=== PATIENT | female | born 1975 | race Caucasian/White ===

== ENCOUNTER 2024-04-18 15:30 | Emergency (ER) | payer BC, MEDICAID ==
[~2024-04-18] VITALS: Ht 160 cm; Wt 53.2 kg
[2024-04-18 16:24] LABS: BASOPHILS # (AUTO) 0.1 X10'3 (0-0.2); BASOPHILS % (AUTO) 0.7 % (0-1); EOSINOPHILS # (AUTO) 0.1 X10'3 (0-0.9); EOSINOPHILS % (AUTO) 0.6 % (0-6); HEMATOCRIT 36.6 % (35.0-45.0); HEMOGLOBIN 12.3 g/dl (12.0-16.0); LYMPHOCYTES # (AUTO) 2.5 X10'3 (1.1-4.8); LYMPHOCYTES % (AUTO) 20.4 % (21-51); MEAN CORPUSCULAR HEMOGLOBIN 30.4 PG (27.0-31.0); MEAN CORPUSCULAR HGB CONC 33.6 g/dL (33.0-36.5); MEAN CORPUSCULAR VOLUME 90.6 FL (78-98); MEAN PLATELET VOLUME 6.9 FL (7.4-10.4); MONOCYTES # (AUTO) 0.8 X10'3 (0-0.9); MONOCYTES % (AUTO) 6.4 % (2-12); NEUTROPHILS # (AUTO) 8.7 X10'3 (1.8-7.7); NEUTROPHILS % (AUTO) 71.9 % (42-75); PLATELET COUNT 431 X10'3 (140-440); RED BLOOD COUNT 4.04 X10'6 (4.20-5.60); RED CELL DISTRIBUTION WIDTH 13.7 % (11.5-14.5); WHITE BLOOD COUNT 12.1 X10'3 (4.5-11.0)
[2024-04-18 16:41] LABS: ALANINE AMINOTRANSFERASE 20 U/L (12-78); ALBUMIN 3.3 G/DL (3.4-5.0); ALBUMIN/GLOBULIN RATIO 0.8 (1.1-1.5); ALKALINE PHOSPHATASE 108 IU/L (46-116); ANION GAP 6 (8-16); ASPARTATE AMINO TRANSFERASE 15 U/L (10-37); BILIRUBIN,TOTAL 0.4 MG/DL (0.1-1.0); BLOOD UREA NITROGEN 15 MG/DL (7-18); CALCIUM 9.3 MG/DL (8.5-10.1); CHLORIDE 100 MMOL/L (99-107); CREATININE 0.94 MG/DL (0.40-0.90); GLUCOSE 89 MG/DL (70-104); LIPASE 37 U/L (16-77); POTASSIUM 3.9 MMOL/L (3.5-5.1); SODIUM 136 MMOL/L (135-145); TOTAL CARBON DIOXIDE 29.9 MMOL/L (24-32); TOTAL PROTEIN 7.3 G/DL (6.4-8.2); eCRCL 61 ML/MIN; eGFR 64 ML/MIN
[2024-04-18] MEDS: normal saline 1000ML IV soln IV ONE (16:49)
[2024-04-18] MEDS: ondansetron/PF 4mg/2ml inj IV ONE ×2 (16:51→20:41)
[2024-04-18] MEDS: HYDROmorphone 1 mg/ml syringe IV ONE ×2 (16:51→20:41)
[2024-04-18 17:30] LABS: HCG SERUM QL NEGATIVE
[2024-04-18 17:41] LABS: BILIRUBIN,URINE NEGATIVE (Neg); CLARITY,URINE CLEAR (Clear); COLOR,URINE YELLOW (Yellow); GLUCOSE, URINE NEGATIVE (Neg); KETONES,URINE NEGATIVE (Neg); LEUKOCYTE ESTERASE ,URINE NEGATIVE (Neg); NITRITES, URINE NEGATIVE (Neg); OCCULT BLOOD,URINE NEGATIVE (Neg); PH,URINE 6.5 (4.8-8.0); PROTEIN,URINE NEGATIVE (Neg); UROBILINOGEN,URINE 0.2 E.U/dL (0.2-1.0)
[2024-04-18 17:45] LABS: UA COLLECTION TYPE NON-SPECIFIED
[2024-04-18] MEDS ORDERED: HYDROmorphone 1 mg/ml syringe IV ONE (20:35)
[2024-04-18] MEDS ORDERED: ONDA4TAB12 PO (20:47)
[2024-04-18] MEDS ORDERED: TETR12.52 (20:48)
[2024-04-18] MEDS ORDERED: ROPI2TAB29 PO (20:50)
[2024-04-18] MEDS ORDERED: BUDE10.22 INH (20:51)
[2024-04-18] MEDS ORDERED: CLON1TAB95 PO (20:53)
[2024-04-18] MEDS ORDERED: PRAZ2CAP2 PO (20:54)
[2024-04-18] MEDS ORDERED: SUMA25TA35 PO (20:56)
[2024-04-18] MEDS ORDERED: DICY10CA88 PO (20:58)
[2024-04-18] MEDS ORDERED: DIPH-186 PO (20:58)
[2024-04-18] MEDS ORDERED: NALO12.52 PO (21:00)
[2024-04-18] MEDS ORDERED: LEVA15HF6 INH (21:01)
[2024-04-18 21:40] VITALS: BP 135/80; PULSE 76; RESP 16; O2SAT 97
[2024-04-18] MEDS ORDERED: CLIN-97 PO (23:10)
[2024-04-18] MEDS ORDERED: HYDR-3965 PO (23:11)
[2024-04-18 23:22] VITALS: TEMP 98.5
== END 2024-04-18 23:27 | disposition home or self-care (01) ==
LOC: ER 15:31
DX: L02.211 Cutaneous abscess of abdominal wall (principal); Z88.0 Allergy status to penicillin; Z88.1 Allergy status to other antibiotic agents; Z88.8 Allergy status to other drugs, medicaments and biological substances; Z79.899 Other long term (current) drug therapy
CPT/HCPCS: 36415; 71045; 74176; 80053; 81003; 83605; 83690; 83735; 84145; 84703; 85025; 87040; 93005; 96361; 96374; 96375; 96376; 99285; J1170; J2405; J7030

== ENCOUNTER 2024-09-26 17:30 | Emergency (ER) | payer BC, MEDICAID ==
[~2024-09-26] VITALS: Ht 160 cm; Wt 59.1 kg
[~2024-09-26 17:30] MED LIST: ALBU2.5V7 NEB; BENZ1TAB78 PO; BUDE10.22 INH; DIVA250T8 PO; LIDO700A47 TP; LOXA25CA PO; PRAZ1CAP5 PO; PREG50CA65; ROPI1TAB47 PO; SUMA25TA9 PO
[2024-09-26 20:03] VITALS: BP 133/87; PULSE 101; RESP 16; TEMP 98; O2SAT 99
== END 2024-09-26 20:05 | disposition home or self-care (01) ==
LOC: ER 17:30
DX: S60.221A Contusion of right hand, initial encounter (principal); Z88.0 Allergy status to penicillin; Z88.1 Allergy status to other antibiotic agents; Z91.048 Other nonmedicinal substance allergy status; Z79.52 Long term (current) use of systemic steroids; Z79.899 Other long term (current) drug therapy; X58.XXXA Exposure to other specified factors, initial encounter; Y93.89 Activity, other specified; Y92.89 Other specified places as the place of occurrence of the external cause; Y99.8 Other external cause status
CPT/HCPCS: 73130; 99283

== ENCOUNTER 2024-10-21 10:00 | Emergency (ER) | payer BC, MEDICAID ==
[~2024-10-21] VITALS: Ht 160 cm; Wt 61.0 kg
[2024-10-21 10:03] VITALS: TEMP 98.8
[2024-10-21 11:10] LABS: BILIRUBIN,URINE NEGATIVE (Neg); CLARITY,URINE CLEAR (Clear); COLOR,URINE YELLOW (Yellow); GLUCOSE, URINE NEGATIVE (Neg); KETONES,URINE NEGATIVE (Neg); LEUKOCYTE ESTERASE ,URINE MODERATE (Neg); NITRITES, URINE NEGATIVE (Neg); OCCULT BLOOD,URINE NEGATIVE (Neg); PH,URINE 7.5 (4.8-8.0); PROTEIN,URINE NEGATIVE (Neg); UROBILINOGEN,URINE 0.2 E.U/dL (0.2-1.0)
[2024-10-21 11:11] LABS: URINE HCG NEGATIVE (NEG)
[2024-10-21 11:15] LABS: UA COLLECTION TYPE CLN CATCH MIDSTREAM
[2024-10-21 11:16] LABS: AMORPHOUS PHOSPHATES 1+; BACTERIA,URINE FEW /HPF (Neg); RBC,URINE 0-2 /HPF (0-2); SQUAMOUS EPITHELIAL CELL,UR FEW /LPF (FEW)
[2024-10-21 11:21] LABS: BASOPHILS # (AUTO) 0.1 X10'3 (0-0.2); BASOPHILS % (AUTO) 0.8 % (0-1); EOSINOPHILS # (AUTO) 0.1 X10'3 (0-0.9); HEMATOCRIT 41.2 % (35.0-45.0); HEMOGLOBIN 14.2 g/dl (12.0-16.0); LYMPHOCYTES # (AUTO) 2.8 X10'3 (1.1-4.8); LYMPHOCYTES % (AUTO) 29.3 % (21-51); MEAN CORPUSCULAR HEMOGLOBIN 32.5 PG (27.0-31.0); MEAN CORPUSCULAR HGB CONC 34.5 g/dL (33.0-36.5); MEAN CORPUSCULAR VOLUME 94.2 FL (78-98); MEAN PLATELET VOLUME 7.7 FL (7.4-10.4); MONOCYTES # (AUTO) 0.7 X10'3 (0-0.9); MONOCYTES % (AUTO) 6.7 % (2-12); NEUTROPHILS % (AUTO) 62.2 % (42-75); PLATELET COUNT 288 X10'3 (140-440); RED BLOOD COUNT 4.38 X10'6 (4.20-5.60); RED CELL DISTRIBUTION WIDTH 13.3 % (11.5-14.5); WHITE BLOOD COUNT 9.7 X10'3 (4.5-11.0)
[2024-10-21 11:36] LABS: ALANINE AMINOTRANSFERASE 20 U/L (12-78); ALBUMIN/GLOBULIN RATIO 1.4 (1.1-1.5); ALKALINE PHOSPHATASE 72 IU/L (46-116); ANION GAP 12 (8-16); ASPARTATE AMINO TRANSFERASE 15 U/L (10-37); BILIRUBIN,TOTAL 0.4 MG/DL (0.1-1.0); BLOOD UREA NITROGEN 15 MG/DL (7-18); BUN/CREATININE RATIO 14.3 (10.0-20.0); CALCIUM 9.3 MG/DL (8.5-10.1); CHLORIDE 105 MMOL/L (99-107); CREATININE 1.05 MG/DL (0.40-0.90); GLUCOSE 97 MG/DL (70-104); POTASSIUM 3.9 MMOL/L (3.5-5.1); SODIUM 141 MMOL/L (135-145); TOTAL CARBON DIOXIDE 23.7 MMOL/L (24-32); TOTAL PROTEIN 6.9 G/DL (6.4-8.2); eCRCL 54 ML/MIN; eGFR 56 ML/MIN
[2024-10-21] MEDS ORDERED: NITR100C6 PO (11:49)
[2024-10-21 20:41] VITALS: BP 127/98; PULSE 88; RESP 15; O2SAT 99
== END 2024-10-21 20:43 | disposition home or self-care (01) ==
LOC: ER 10:01
DX: N39.0 Urinary tract infection, site not specified (principal); F41.9 Anxiety disorder, unspecified; Z88.0 Allergy status to penicillin; Z88.8 Allergy status to other drugs, medicaments and biological substances; Z88.1 Allergy status to other antibiotic agents; Z79.899 Other long term (current) drug therapy
CPT/HCPCS: 36415; 80053; 81001; 81025; 85025; 87088; 93005; 99284